=== PATIENT | male | born 1955 | race Caucasian/White ===

== ENCOUNTER → 2019-06-06 | Day surgery (SDC) | payer OTHER ==
[~2019-06-06] MED LIST: ACETAMINOPHEN 325 MG TABLET PO PRN; ALBUTEROL SULFATE 2.5 MG/3 ML NEBU. NEB PRN; AMLO5TAB10 PO; ATROPINE 0.5 MG/5 ML DISP.SYRIN. IV PRN; IV RINGERS SOLUTION,LACTATED 1,000 ML IV SCH; OMEP20CA16 PO; ONDANSETRON PF 4 MG/2 ML VIAL. IV PRN; PHENOL ORAL SPRAY 177ML BOTTLE. MM PRN; PRAV40TA PO; PROPOFOL 20 ML IV ONE; diphenhydrAMINE 50 MG/ML VIAL IV PRN
[2019-06-06 10:12] VITALS: BP 126/59
== END ==
LOC: SURG 08:21
PROVIDERS: ATTEND Internal Medicine Gastroenterology
DX: R19.4 Change in bowel habit (principal); D12.3 Benign neoplasm of transverse colon; K57.30 Diverticulosis of large intestine without perforation or abscess without bleeding; K21.9 Gastro-esophageal reflux disease without esophagitis; K58.9 Irritable bowel syndrome, unspecified; I10 Essential (primary) hypertension; E78.5 Hyperlipidemia, unspecified; Z98.890 Other specified postprocedural states; Z87.442 Personal history of urinary calculi
CPT/HCPCS: 45385; J2704; J7120